=== PATIENT | male | born 1995 | race Caucasian/White ===

== ENCOUNTER 2017-12-09 14:31 | Emergency (ER) | payer SELFPAY ==
[~2017-12-09] VITALS: Ht 180.3 cm; Wt 108.0 kg
[2017-12-09 15:00] VITALS: BP 120/73; PULSE 96; RESP 18; TEMP 98.4; O2SAT 98
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
[2017-12-09] MEDS ORDERED: TETANUS/DIPHTHERIA TOXOID ADULT 0.5 ML VIAL IM ONE (16:00)
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
[2017-12-09] MEDS ORDERED: CEPH-460 PO (17:38)
[2017-12-09] MEDS ORDERED: HYDR-3516 PO (17:38)
== END 2017-12-09 18:25 | disposition home or self-care (01) ==
LOC: NEPK 14:31
DX: S02.609A Fracture of mandible, unspecified, initial encounter for closed fracture (principal); S02.2XXA Fracture of nasal bones, initial encounter for closed fracture; Y09 Assault by unspecified means; Y92.143 Cell of prison as the place of occurrence of the external cause; Z23 Encounter for immunization
CPT/HCPCS: 70450; 70486; 72125; 90471; 90714